=== PATIENT | female | born 1995 | race Caucasian/White ===

== ENCOUNTER 2022-10-15 14:18 | Emergency (ER) | payer OTHER ==
[~2022-10-15] VITALS: Ht 170.2 cm; Wt 90.7 kg
[2022-10-15] MEDS ORDERED: WELLBUTRIN XL150 M1 PO (14:42)
== END 2022-10-15 18:12 | disposition home or self-care (01) ==
LOC: ER 14:18
DX: S09.8XXA Other specified injuries of head, initial encounter (principal); W18.39XA Other fall on same level, initial encounter; Y93.89 Activity, other specified; Y92.830 Public park as the place of occurrence of the external cause; Y99.8 Other external cause status; G44.89 Other headache syndrome; Z88.6 Allergy status to analgesic agent